=== PATIENT | male | born 1955 | race Caucasian/White ===

== ENCOUNTER 2018-12-06 15:47 | Emergency (ER) | payer OTHER ==
[~2018-12-06] VITALS: Ht 182.9 cm; Wt 70.3 kg
[2018-12-06 15:58] VITALS: Ht 182.9 cm; Wt 70.3 kg
[2018-12-06 17:10] VITALS: BP 119/63
== END 2018-12-06 17:10 | disposition home or self-care (01) ==
LOC: ED 15:47
DX: R51 Headache (principal)